=== PATIENT | male | born 1985 | race Caucasian/White ===

== ENCOUNTER 2021-07-18 12:33 | Inpatient (IN) | payer OTHER ==
[2021-07-18] MEDS ORDERED: MAGNESIUM HYDROX 2400MG/30ML ORAL SUSPENSION 30 ML CUP PO PRN (13:03)
[2021-07-18] MEDS ORDERED: ACETAMINOPHEN 325 MG TABLET (FP) PO PRN ×2 (13:03)
[2021-07-18] MEDS ORDERED: MAGNESIUM CITRATE 300 ML BOTTLE PO PRN (13:03)
[2021-07-18] MEDS ORDERED: ONDANSETRON *ODT* 4 MG TABLET SL PRN (13:03)
[2021-07-18] MEDS ORDERED: MENTHOL/PHENOL 1 EACH UD MM PRN (13:03)
[2021-07-18] MEDS ORDERED: BISMUTH SUBSALICYLATE 262 MG/15 ML BTL PO PRN (13:03)
[2021-07-18] MEDS ORDERED: methaDONE HCL 10 MG TABLET (FOR DETOX USE ONLY) PO ONE (13:03)
[2021-07-18] MEDS ORDERED: MAG HYDROX/AL HYDROX/SIMETH 30 ML UNIT-DOSE CUP PO PRN (13:03)
[2021-07-18 13:16] VITALS: BMI 21.4
[2021-07-18] MEDS: hydrOXYzine PAMOATE 25 MG CAPSULE (FP) PO SCH ×3 (15:48→22:29)
[2021-07-18] MEDS: PRENATAL VITAMINS W/ FOLIC ACID TABLET (FP) PO SCH (15:48)
[2021-07-18] MEDS: NICOTINE 14 MG/24 HOURS TOPICAL PATCH TD SCH (15:53)
[2021-07-18 18:54] LABS: HEMATOCRIT 41.6 % (35.4-49); HEMOGLOBIN 13.6 GM/dL (11.7-16.9); MCH 29.5 pg (25.7-33.7); MCHC 32.6 g/dl (32.0-35.9); MEAN CELL VOLUME 90.5 fl (80-96); MEAN PLT VOLUME 8.5 fl (7.5-11.1); PLATELET COUNT 241 10^3/uL (134-434); RBC 4.59 M/mm3 (4.00-5.60); RDW 13.9 % (11.9-15.9); WHITE BLOOD COUNT 11.9 K/mm3 (4.0-10.0)
[2021-07-18] MEDS: NICOTINE 10 MG CARTRIDGE (INHALER) IH PRN (19:16)
[2021-07-18 19:25] LABS: ALBUMIN 4.1 g/dl (3.4-5.0); CALCIUM 8.9 mg/dL (8.5-10.1)
[2021-07-18 19:28] LABS: CREATININE 0.8 mg/dL (0.55-1.3)
[2021-07-18 19:29] LABS: BILIRUBIN,TOTAL 0.2 mg/dL (0.2-1); TOT PROT 7.3 g/dl (6.4-8.2)
[2021-07-18] MEDS: METHOCARBAMOL 500 MG TABLET PO PRN (20:24)
[2021-07-18] MEDS: cloNIDine HCL 0.1 MG TABLET PO PRN (20:24)
[2021-07-18] MEDS: MELATONIN 5 MG TABLETS PO SCH (22:29)
[2021-07-18] MEDS: THIAMINE HCL 100 MG TABLET (FP) PO SCH (22:29)
[2021-07-19] MEDS: cloNIDine HCL 0.1 MG TABLET PO PRN ×4 (03:07→18:56)
[2021-07-19] MEDS: METHOCARBAMOL 500 MG TABLET PO PRN ×3 (03:07→18:57)
[2021-07-19] MEDS: NICOTINE 10 MG CARTRIDGE (INHALER) IH PRN ×4 (03:08→22:31)
[2021-07-19] MEDS: IBUPROFEN 400 MG TABLET (FP) PO PRN ×2 (04:39→17:56)
[2021-07-19] MEDS: hydrOXYzine PAMOATE 25 MG CAPSULE (FP) PO SCH (05:03)
[2021-07-19] MEDS ORDERED: methaDONE HCL 10 MG TABLET (FOR DETOX USE ONLY) ONE (09:03)
[2021-07-19] MEDS ORDERED: hydrOXYzine PAMOATE 50 MG CAPSULE (FP) PO PRN (09:18)
[2021-07-19] MEDS: hydrOXYzine PAMOATE 50 MG CAPSULE (FP) PO PRN ×2 (11:01→18:57)
[2021-07-19] MEDS: PRENATAL VITAMINS W/ FOLIC ACID TABLET (FP) PO SCH (11:02)
[2021-07-19] MEDS: NICOTINE 14 MG/24 HOURS TOPICAL PATCH TD SCH (11:02)
[2021-07-19] MEDS: DEXTROAMPHETAMINE/AMPHETAMINE 10 MG CAP.ER.24H PO SCH (12:14)
[2021-07-19] MEDS: GABAPENTIN 400 MG CAPSULE PO SCH ×2 (15:46→22:23)
[2021-07-19] MEDS: diazePAM 5 MG TABLET PO PRN ×2 (16:36→22:26)
[2021-07-19] MEDS: THIAMINE HCL 100 MG TABLET (FP) PO SCH (22:23)
[2021-07-19] MEDS: MELATONIN 5 MG TABLETS PO SCH (22:24)
[2021-07-20] MEDS: cloNIDine HCL 0.1 MG TABLET PO PRN (03:39)
[2021-07-20] MEDS: diazePAM 5 MG TABLET PO PRN ×3 (04:52→19:00)
[2021-07-20] MEDS: GABAPENTIN 400 MG CAPSULE PO SCH ×3 (05:11→22:40)
[2021-07-20] MEDS ORDERED: methaDONE HCL 10 MG TABLET (FOR DETOX USE ONLY) PO ONE (10:00)
[2021-07-20] MEDS: PRENATAL VITAMINS W/ FOLIC ACID TABLET (FP) PO SCH (10:46)
[2021-07-20] MEDS: DEXTROAMPHETAMINE/AMPHETAMINE 10 MG CAP.ER.24H PO SCH (10:46)
[2021-07-20] MEDS: METHOCARBAMOL 500 MG TABLET PO PRN (10:47)
[2021-07-20] MEDS: hydrOXYzine PAMOATE 50 MG CAPSULE (FP) PO PRN ×2 (10:47→17:59)
[2021-07-20] MEDS: NICOTINE 14 MG/24 HOURS TOPICAL PATCH TD SCH (10:49)
[2021-07-20 11:34] LABS: BASO % 0.5 % (0-2.0); HEMATOCRIT 39.9 % (35.4-49); HEMOGLOBIN 13.3 GM/dL (11.7-16.9); LYMPH % 37.7 % (8-40); MCH 30.1 pg (25.7-33.7); MCHC 33.4 g/dl (32.0-35.9); MEAN CELL VOLUME 90.1 fl (80-96); MEAN PLT VOLUME 8.2 fl (7.5-11.1); MONO % 14.4 % (3.8-10.2); NEUT % 46.4 % (42.8-82.8); PLATELET COUNT 191 10^3/uL (134-434); RBC 4.43 M/mm3 (4.00-5.60); RDW 13.6 % (11.9-15.9); WHITE BLOOD COUNT 8.3 K/mm3 (4.0-10.0)
[2021-07-20] MEDS: NICOTINE 10 MG CARTRIDGE (INHALER) IH PRN (18:15)
[2021-07-20] MEDS: SUVOREXANT 10 MG TABLET PO PRN (22:39)
[2021-07-20] MEDS: THIAMINE HCL 100 MG TABLET (FP) PO SCH (22:40)
[2021-07-21] MEDS: diazePAM 5 MG TABLET PO PRN ×2 (01:25→11:33)
[2021-07-21] MEDS: GABAPENTIN 400 MG CAPSULE PO SCH ×3 (05:13→22:13)
[2021-07-21] MEDS: hydrOXYzine PAMOATE 50 MG CAPSULE (FP) PO PRN ×3 (05:15→18:38)
[2021-07-21] MEDS ORDERED: methaDONE HCL 10 MG TABLET (FOR DETOX USE ONLY) ONE (09:30)
[2021-07-21] MEDS: DEXTROAMPHETAMINE/AMPHETAMINE 10 MG CAP.ER.24H PO SCH (10:22)
[2021-07-21] MEDS: METHOCARBAMOL 500 MG TABLET PO PRN ×2 (10:23→22:46)
[2021-07-21] MEDS: PRENATAL VITAMINS W/ FOLIC ACID TABLET (FP) PO SCH (10:23)
[2021-07-21] MEDS: NICOTINE 14 MG/24 HOURS TOPICAL PATCH TD SCH (10:23)
[2021-07-21] MEDS: NICOTINE 10 MG CARTRIDGE (INHALER) IH PRN ×3 (10:26→22:16)
[2021-07-21] MEDS: SUVOREXANT 10 MG TABLET PO PRN (22:12)
[2021-07-21] MEDS: THIAMINE HCL 100 MG TABLET (FP) PO SCH (22:12)
[2021-07-22] MEDS: hydrOXYzine PAMOATE 50 MG CAPSULE (FP) PO PRN ×4 (01:06→22:16)
[2021-07-22] MEDS: IBUPROFEN 400 MG TABLET (FP) PO PRN ×2 (02:05→23:35)
[2021-07-22] MEDS: METHOCARBAMOL 500 MG TABLET PO PRN ×4 (03:57→23:35)
[2021-07-22] MEDS: GABAPENTIN 400 MG CAPSULE PO SCH ×3 (06:38→22:14)
[2021-07-22] MEDS ORDERED: methaDONE HCL 10 MG TABLET (FOR DETOX USE ONLY) PO ONE (10:00)
[2021-07-22] MEDS: DEXTROAMPHETAMINE/AMPHETAMINE 10 MG CAP.ER.24H PO SCH (10:43)
[2021-07-22] MEDS: PRENATAL VITAMINS W/ FOLIC ACID TABLET (FP) PO SCH (10:44)
[2021-07-22] MEDS: NICOTINE 10 MG CARTRIDGE (INHALER) IH PRN ×3 (10:48→22:19)
[2021-07-22] MEDS: NICOTINE 14 MG/24 HOURS TOPICAL PATCH TD SCH (10:49)
[2021-07-22] MEDS: THIAMINE HCL 100 MG TABLET (FP) PO SCH (22:13)
[2021-07-22] MEDS: SUVOREXANT 10 MG TABLET PO PRN (22:16)
[2021-07-23] MEDS: GABAPENTIN 400 MG CAPSULE PO SCH (06:43)
[2021-07-23] MEDS: METHOCARBAMOL 500 MG TABLET PO PRN (06:53)
[2021-07-23 09:20] VITALS: BP 109/70; PULSE 85; TEMP 98.1
[2021-07-23] MEDS: DEXTROAMPHETAMINE/AMPHETAMINE 10 MG CAP.ER.24H PO SCH (10:09)
[2021-07-23] MEDS: PRENATAL VITAMINS W/ FOLIC ACID TABLET (FP) PO SCH (10:09)
[2021-07-23] MEDS: hydrOXYzine PAMOATE 50 MG CAPSULE (FP) PO PRN (10:10)
[2021-07-23] MEDS: NICOTINE 14 MG/24 HOURS TOPICAL PATCH TD SCH (10:12)
== END 2021-07-23 11:05 | disposition home or self-care (01) | DRG 773 ==
LOC: YASAS 12:33 → Y6N 14:08
PROVIDERS: ADMIT Allergy & Immunology; ATTEND Allergy & Immunology
PROC: HZ2ZZZZ Detoxification Services for Substance Abuse Treatment (ICD-10-PCS; principal; 2021-07-18)
DX: F11.23 Opioid dependence with withdrawal (principal); F13.20 Sedative, hypnotic or anxiolytic dependence, uncomplicated; F12.10 Cannabis abuse, uncomplicated; F17.210 Nicotine dependence, cigarettes, uncomplicated; F19.280 Other psychoactive substance dependence with psychoactive substance-induced anxiety disorder; F90.9 Attention-deficit hyperactivity disorder, unspecified type; D72.829 Elevated white blood cell count, unspecified; E05.00 Thyrotoxicosis with diffuse goiter without thyrotoxic crisis or storm; R74.01 Elevation of levels of liver transaminase levels
CPT/HCPCS: 36415; 80053; 84443; 85025; 85027; 86780; 93005; 93010; C9803; J0735; U0003; U0005